=== PATIENT | male | born 1950 | race Caucasian/White ===

== ENCOUNTER 2020-10-01 08:50 | Outpatient (CLI) | payer MEDICARE | END 2020-10-01 08:51 | disposition home or self-care (01) | LOC: CSHWCC 08:50 | PROVIDERS: ATTEND Nurse Practitioner Family | DX: I87.333 Chronic venous hypertension (idiopathic) with ulcer and inflammation of bilateral lower extremity (principal); E11.622 Type 2 diabetes mellitus with other skin ulcer; L97.212 Non-pressure chronic ulcer of right calf with fat layer exposed; L97.222 Non-pressure chronic ulcer of left calf with fat layer exposed; E11.51 Type 2 diabetes mellitus with diabetic peripheral angiopathy without gangrene; I70.203 Unspecified atherosclerosis of native arteries of extremities, bilateral legs; E03.8 Other specified hypothyroidism; E78.2 Mixed hyperlipidemia; I48.20 Chronic atrial fibrillation, unspecified; I89.0 Lymphedema, not elsewhere classified; R60.0 Localized edema | CPT/HCPCS: 29581; 97139; G0463; 99213 ==

== ENCOUNTER 2020-10-16 08:14 | Outpatient (CLI) | payer MEDICARE | END 2020-10-16 08:15 | disposition home or self-care (01) | LOC: CSHWCC 08:14 | PROVIDERS: ATTEND Nurse Practitioner Family | DX: I87.333 Chronic venous hypertension (idiopathic) with ulcer and inflammation of bilateral lower extremity (principal); I87.2 Venous insufficiency (chronic) (peripheral); E11.622 Type 2 diabetes mellitus with other skin ulcer; L97.212 Non-pressure chronic ulcer of right calf with fat layer exposed; L97.222 Non-pressure chronic ulcer of left calf with fat layer exposed; E11.51 Type 2 diabetes mellitus with diabetic peripheral angiopathy without gangrene; I70.203 Unspecified atherosclerosis of native arteries of extremities, bilateral legs; R60.0 Localized edema; I89.0 Lymphedema, not elsewhere classified; E03.8 Other specified hypothyroidism; E78.2 Mixed hyperlipidemia; I48.20 Chronic atrial fibrillation, unspecified | CPT/HCPCS: 29581; 87070; 87077; 87186; 87205; 99213; G0463 ==

== ENCOUNTER 2020-10-23 09:00 | Outpatient (CLI) | payer MEDICARE | END 2020-10-23 09:01 | disposition home or self-care (01) | LOC: CSHWCC 09:00 | PROVIDERS: ATTEND Nurse Practitioner Family | DX: I87.331 Chronic venous hypertension (idiopathic) with ulcer and inflammation of right lower extremity (principal); I87.332 Chronic venous hypertension (idiopathic) with ulcer and inflammation of left lower extremity; E11.622 Type 2 diabetes mellitus with other skin ulcer; L97.212 Non-pressure chronic ulcer of right calf with fat layer exposed; L97.222 Non-pressure chronic ulcer of left calf with fat layer exposed; R60.0 Localized edema; E03.8 Other specified hypothyroidism; I48.20 Chronic atrial fibrillation, unspecified; I70.203 Unspecified atherosclerosis of native arteries of extremities, bilateral legs; I89.0 Lymphedema, not elsewhere classified | CPT/HCPCS: 29581; 99213; G0463 ==

== ENCOUNTER 2020-10-30 08:47 | Outpatient (CLI) | payer MEDICARE | END 2020-10-30 08:48 | disposition home or self-care (01) | LOC: CSHWCC 08:47 | PROVIDERS: ATTEND Nurse Practitioner Family | DX: I87.333 Chronic venous hypertension (idiopathic) with ulcer and inflammation of bilateral lower extremity (principal); E11.622 Type 2 diabetes mellitus with other skin ulcer; L97.212 Non-pressure chronic ulcer of right calf with fat layer exposed; L97.222 Non-pressure chronic ulcer of left calf with fat layer exposed; E03.8 Other specified hypothyroidism; E78.2 Mixed hyperlipidemia; I10 Essential (primary) hypertension; I48.20 Chronic atrial fibrillation, unspecified; I89.0 Lymphedema, not elsewhere classified; R60.0 Localized edema; I70.203 Unspecified atherosclerosis of native arteries of extremities, bilateral legs | CPT/HCPCS: 29581; 99214; G0463 ==

== ENCOUNTER 2020-11-06 09:59 | Outpatient (CLI) | payer MEDICARE | END 2020-11-06 10:00 | disposition home or self-care (01) | LOC: CSHWCC 09:59 | PROVIDERS: ATTEND Nurse Practitioner Family | DX: S91.201D Unspecified open wound of right great toe with damage to nail, subsequent encounter (principal); I87.332 Chronic venous hypertension (idiopathic) with ulcer and inflammation of left lower extremity; I87.331 Chronic venous hypertension (idiopathic) with ulcer and inflammation of right lower extremity; E11.622 Type 2 diabetes mellitus with other skin ulcer; L97.212 Non-pressure chronic ulcer of right calf with fat layer exposed; L97.222 Non-pressure chronic ulcer of left calf with fat layer exposed; R60.0 Localized edema; E03.8 Other specified hypothyroidism; E78.2 Mixed hyperlipidemia; I48.20 Chronic atrial fibrillation, unspecified; I89.0 Lymphedema, not elsewhere classified; I70.203 Unspecified atherosclerosis of native arteries of extremities, bilateral legs | CPT/HCPCS: 29581; 97139; G0463; 99214 ==

== ENCOUNTER 2021-01-07 09:16 | Outpatient (CLI) | payer MEDICARE | END 2021-01-07 09:17 | disposition home or self-care (01) | LOC: CSHWCC 09:16 | PROVIDERS: ATTEND Nurse Practitioner Family | DX: E11.622 Type 2 diabetes mellitus with other skin ulcer (principal); I87.331 Chronic venous hypertension (idiopathic) with ulcer and inflammation of right lower extremity; L97.212 Non-pressure chronic ulcer of right calf with fat layer exposed; L97.312 Non-pressure chronic ulcer of right ankle with fat layer exposed; E03.8 Other specified hypothyroidism; E78.2 Mixed hyperlipidemia; I48.20 Chronic atrial fibrillation, unspecified; I70.203 Unspecified atherosclerosis of native arteries of extremities, bilateral legs; I89.0 Lymphedema, not elsewhere classified ==

== ENCOUNTER 2021-09-13 19:20 | Inpatient (IN) | payer MEDICARE, OTHER ==
[2021-09-13] MEDS ORDERED: Dextrose 5% in Water 1,000 ML IV PRN (20:13)
[2021-09-13] MEDS ORDERED: Dextrose 50% Abboject 50 ML SYRINGE SLOW IVP PRN (20:13)
[2021-09-13 20:20] VITALS: BMI 38.1
[2021-09-13] MEDS ORDERED: Pantoprazole 40 MG VIAL IVP SCH (20:45)
[2021-09-13] MEDS: Sodium Chloride 0.9% 1,000 ML IV SCH (20:57)
[2021-09-13] MEDS ORDERED: Lantus 1000 UNITS/10 ML VIAL SC SCH (21:00)
[2021-09-13] MEDS ORDERED: Atorvastatin Calcium 20 MG TAB PO SCH (21:00)
[2021-09-13] MEDS ORDERED: VANCOMYCIN 2 GRAM/400 ML BAG IVPB SCH (21:00)
[2021-09-13 21:22] LABS: PTT 29.4 sec (22.0-33.0); Prothrombin Time 11.1 sec (9.5-12.1)
[2021-09-13 21:25] LABS: Magnesium 2.2 mg/dL (1.6-2.6)
[2021-09-13 21:30] LABS: Troponin I 0.039 ng/mL (< 0.028)
[2021-09-13] MEDS: Gabapentin 300 MG CAP PO SCH (21:45)
[2021-09-13] MEDS: VANCOMYCIN 2 GRAM/400 ML BAG 2 GM in Premix Bag 1 BAG IVPB SCH (21:46)
[2021-09-14] MEDS ORDERED: Levothyroxine Sodium 75 MCG TAB PO SCH (06:00)
[2021-09-14] MEDS ORDERED: Levothyroxine Sodium 100 MCG TAB PO SCH (06:00)
[2021-09-14] MEDS: Gabapentin 300 MG CAP PO SCH ×3 (08:45→20:05)
[2021-09-14] MEDS: Pantoprazole 40 MG VIAL IVP SCH ×2 (08:46→20:06)
[2021-09-14] MEDS: VANCOMYCIN 2 GRAM/400 ML BAG 2 GM in Premix Bag 1 BAG IVPB SCH (08:46)
[2021-09-14] MEDS ORDERED: Empagliflozin 10 MG TAB PO SCH (09:00)
[2021-09-14] MEDS ORDERED: Ezetimibe 10 MG TAB PO SCH (09:00)
[2021-09-14] MEDS ORDERED: Lantus 1000 UNITS/10 ML VIAL SC SCH (09:00)
[2021-09-14] MEDS ORDERED: Losartan Potassium 50 MG TAB PO SCH (09:00)
[2021-09-14] MEDS: Sodium Chloride 0.9% 1,000 ML IV SCH ×2 (09:22→22:23)
[2021-09-14 09:59] LABS: Anion Gap 14 mmol/L (10-20); BUN (Urea Nitrogen) 15 mg/dL (8.4-25.7); Calc. Creatinine Clearance 117 mL/min (70-130); Calcium 8.7 mg/dL (7.8-10.44); Carbon Dioxide 23 mmol/L (23-31); Chloride 107 mmol/L (98-107); Estimated GFR 74; Glucose 191 mg/dL (83-110); Potassium 4.6 mmol/L (3.5-5.1); Sodium 139 mmol/L (136-145)
[2021-09-14 10:01] LABS: Troponin I 0.039 ng/mL (< 0.028)
[2021-09-14 10:25] LABS: #Eosinphils 0.1 10x3/uL (0.0-0.5); #Monocytes 0.8 10x3/uL (0.0-1.1); #Neutrophils 7.1 10x3/uL (1.5-8.4); %Basophils 0.5 % (0.0-2.0); %Eosinophils 1.1 % (0.0-6.0); %Lymphocytes 7.4 % (18.0-47.0); %Monocytes 9.5 % (0.0-10.0); %Neutrophils 79.8 % (40.0-75.0); Hemoglobin 8.4 g/dL (13.5-17.5); Mean Corpuscular HGB CONC 31.8 g/dL (32.0-36.0); Mean Corpuscular Hemoglobin 26.2 pg (27.0-33.0); Mean Corpuscular Volume 82.2 fl (81.2-95.1); Mean Platelet Volume 10.1 fl (7.4-10.4); Platelet Count 352 10x3/uL (150-450); RBC Distribution Width 24.8 % (11.5-14.5); Red Blood Cell (RBC) Count 3.21 10x6/uL (4.32-5.72); White Blood Cell (WBC) Count 8.8 10x3/uL (3.5-10.5)
[2021-09-14 10:40] LABS: Anisocytosis MODERATE=16-30 cells (100X) (0-5/hpf); Hypochromia SLIGHT = 6-15 cells (100X) (0-5/hpf); Macrocytosis SLIGHT = 6-15 cells (100X) (0-5/hpf); Poikilocytosis SLIGHT = 6-15 cells (100X) (0-5/hpf); Polychromasia SLIGHT = 2-3 cells (100X) (0-2/hpf)
[2021-09-14 10:44] LABS: Platelet Morphology Comment Appears Adequate
[2021-09-14] MEDS ORDERED: HYDROcodone/Acetaminophen 5/325 mg Tablet PO PRN (17:03)
[2021-09-14] MEDS: HumaLOG 300 UNITS/3 ML VIAL SC PRN ×2 (17:16→20:08)
[2021-09-14] MEDS ORDERED: metFORMIN 500 MG TAB PO SCH (18:00)
[2021-09-14 18:43] LABS: Anion Gap 12 mmol/L (10-20); BUN (Urea Nitrogen) 18 mg/dL (8.4-25.7); Calc. Creatinine Clearance 91 mL/min (70-130); Calcium 9.1 mg/dL (7.8-10.44); Carbon Dioxide 23 mmol/L (23-31); Chloride 105 mmol/L (98-107); Estimated GFR 55; Glucose 201 mg/dL (83-110); Potassium 4.4 mmol/L (3.5-5.1); Sodium 136 mmol/L (136-145)
[2021-09-14] MEDS: Atorvastatin Calcium 20 MG TAB PO SCH (20:05)
[2021-09-14] MEDS: Lantus 1000 UNITS/10 ML VIAL SC SCH (20:08)
[2021-09-14] MEDS ORDERED: Vancomycin HCl 1.25 GM in Sodium Chloride 0.9% 250 ML 250 ML IVPB SCH (21:00)
[2021-09-14] MEDS: Vancomycin HCl 1.25 GM in Sodium Chloride 0.9% 250 ML 250 ML IVPB SCH (22:22)
[2021-09-15] MEDS: HumaLOG 300 UNITS/3 ML VIAL SC PRN (05:07)
[2021-09-15] MEDS: Levothyroxine Sodium 112 MCG TAB PO SCH (05:08)
[2021-09-15] MEDS: Levothyroxine Sodium 25 MCG TAB PO SCH (05:08)
[2021-09-15 05:43] LABS: #Eosinphils 0.2 10x3/uL (0.0-0.5); #Monocytes 1.1 10x3/uL (0.0-1.1); #Neutrophils 8.3 10x3/uL (1.5-8.4); %Basophils 0.3 % (0.0-2.0); %Eosinophils 1.8 % (0.0-6.0); %Lymphocytes 5.8 % (18.0-47.0); %Monocytes 10.6 % (0.0-10.0); %Neutrophils 80.7 % (40.0-75.0); Hemoglobin 8.4 g/dL (13.5-17.5); Mean Corpuscular HGB CONC 31.9 g/dL (32.0-36.0); Mean Corpuscular Hemoglobin 27.6 pg (27.0-33.0); Mean Corpuscular Volume 86.5 fl (81.2-95.1); Platelet Count 341 10x3/uL (150-450); RBC Distribution Width 26.8 % (11.5-14.5); Red Blood Cell (RBC) Count 3.04 10x6/uL (4.32-5.72); White Blood Cell (WBC) Count 10.3 10x3/uL (3.5-10.5)
[2021-09-15 06:21] LABS: Anisocytosis MODERATE=16-30 cells (100X) (0-5/hpf)
[2021-09-15 06:22] LABS: Macrocytosis SLIGHT = 6-15 cells (100X) (0-5/hpf); Poikilocytosis SLIGHT = 6-15 cells (100X) (0-5/hpf)
[2021-09-15 06:23] LABS: Elliptocytes SLIGHT = 2-5 cells (100X) (0-1/hpf); Hypochromia SLIGHT = 6-15 cells (100X) (0-5/hpf); Platelet Morphology Comment Appears Adequate; Polychromasia SLIGHT = 2-3 cells (100X) (0-2/hpf)
[2021-09-15] MEDS ORDERED: metFORMIN 500 MG TAB PO SCH (08:00)
[2021-09-15] MEDS: Gabapentin 300 MG CAP PO SCH ×3 (08:18→20:46)
[2021-09-15] MEDS: Losartan Potassium 50 MG TAB PO SCH (08:19)
[2021-09-15] MEDS: Empagliflozin 10 MG TAB PO SCH (08:20)
[2021-09-15] MEDS: Furosemide 40 MG TAB PO SCH (08:20)
[2021-09-15] MEDS: Ezetimibe 10 MG TAB PO SCH (08:20)
[2021-09-15] MEDS: Aspirin Chewable 81 MG TAB PO SCH (08:20)
[2021-09-15] MEDS: Alogliptin 25 MG TAB PO SCH (08:20)
[2021-09-15] MEDS: Lantus 1000 UNITS/10 ML VIAL SC SCH ×2 (08:21→20:46)
[2021-09-15] MEDS: Pantoprazole 40 MG VIAL IVP SCH ×2 (08:32→20:47)
[2021-09-15 08:35] LABS: Vancomycin, Trough 18.2 ug/mL
[2021-09-15] MEDS: Vancomycin HCl 1.25 GM in Sodium Chloride 0.9% 250 ML 250 ML IVPB SCH (08:36)
[2021-09-15 10:32] LABS: Anion Gap 16 mmol/L (10-20); BUN (Urea Nitrogen) 16 mg/dL (8.4-25.7); Calc. Creatinine Clearance 115 mL/min (70-130); Calcium 8.9 mg/dL (7.8-10.44); Carbon Dioxide 20 mmol/L (23-31); Chloride 107 mmol/L (98-107); Estimated GFR 73; Glucose 147 mg/dL (83-110); Potassium 4.5 mmol/L (3.5-5.1); Sodium 138 mmol/L (136-145)
[2021-09-15] MEDS: Sodium Chloride 0.9% 1,000 ML IV SCH ×2 (16:08→22:05)
[2021-09-15] MEDS ORDERED: Furosemide 40 MG TAB PO SCH (17:00)
[2021-09-15] MEDS: Atorvastatin Calcium 20 MG TAB PO SCH (20:47)
[2021-09-15] MEDS ORDERED: Vancomycin HCl 1 GM in Sodium Chloride 0.9% 250 ML 250 ML IVPB SCH (21:00)
[2021-09-16] MEDS: Levothyroxine Sodium 112 MCG TAB PO SCH (04:52)
[2021-09-16] MEDS: Levothyroxine Sodium 25 MCG TAB PO SCH (04:52)
[2021-09-16] MEDS: HumaLOG 300 UNITS/3 ML VIAL SC PRN (04:55)
[2021-09-16 05:28] LABS: Hemoglobin 8.6 g/dL (13.5-17.5); Mean Corpuscular HGB CONC 29.9 g/dL (32.0-36.0); Mean Corpuscular Volume 80.2 fl (81.2-95.1); Mean Platelet Volume 10.3 fl (7.4-10.4); Platelet Count 359 10x3/uL (150-450); RBC Distribution Width 23.4 % (11.5-14.5); Red Blood Cell (RBC) Count 3.59 10x6/uL (4.32-5.72); White Blood Cell (WBC) Count 11.8 10x3/uL (3.5-10.5)
[2021-09-16] MEDS: Gabapentin 300 MG CAP PO SCH (08:24)
[2021-09-16] MEDS: Aspirin Chewable 81 MG TAB PO SCH (08:24)
[2021-09-16] MEDS: Losartan Potassium 50 MG TAB PO SCH (08:25)
[2021-09-16] MEDS: Alogliptin 25 MG TAB PO SCH (08:26)
[2021-09-16] MEDS: Empagliflozin 10 MG TAB PO SCH (08:26)
[2021-09-16] MEDS: Furosemide 40 MG TAB PO SCH (08:26)
[2021-09-16] MEDS: Ezetimibe 10 MG TAB PO SCH (08:26)
[2021-09-16] MEDS: Lantus 1000 UNITS/10 ML VIAL SC SCH (08:27)
[2021-09-16] MEDS: Pantoprazole 40 MG VIAL IVP SCH (08:29)
[2021-09-16 08:36] VITALS: BP 148/65; TEMP 97.4
== END 2021-09-16 13:42 | disposition home or self-care (01) | DRG 812 ==
LOC: CSHTELE 19:20
PROVIDERS: ADMIT Family Medicine; ATTEND Internal Medicine
PROC: 30233N1 Transfusion of Nonautologous Red Blood Cells into Peripheral Vein, Percutaneous Approach (ICD-10-PCS; principal; 2021-09-13)
DX: D62 Acute posthemorrhagic anemia (principal); I48.0 Paroxysmal atrial fibrillation; I10 Essential (primary) hypertension; E78.5 Hyperlipidemia, unspecified; E66.9 Obesity, unspecified; E03.9 Hypothyroidism, unspecified; R04.0 Epistaxis; E11.42 Type 2 diabetes mellitus with diabetic polyneuropathy; R91.8 Other nonspecific abnormal finding of lung field; I87.2 Venous insufficiency (chronic) (peripheral); D50.9 Iron deficiency anemia, unspecified; Z68.38 Body mass index [BMI] 38.0-38.9, adult
CPT/HCPCS: 36415; 36416; 36430; 71045; 80048; 80202; 83735; 84145; 84484; 85014; 85025; 85027; 85610; 85730; 86850; 86900; 86901; 93005; 93010; 93306; 94760; C9113; J1815; J1956; J3370; J7050; P9016